=== PATIENT | female | born 2000 | race Caucasian/White ===

== ENCOUNTER 2021-07-25 22:27 | Emergency (ER) | payer SELFPAY ==
[2021-07-25 22:29] VITALS: BP 129/73; PULSE 86; RESP 17; TEMP 36.7; O2SAT 98; BMI 28.1
[2021-07-25 22:54] VITALS: BMI 28.1
[2021-07-25 23:17] LABS: Microscopic, Urine URINE MICROSCOPIC (MICROSCOPIC)
[2021-07-25 23:20] LABS: Basophils # 0.1 K/mm3 (0-0.2); Basophils % 1.1 % (0.1-2.0); Eosinophils # 0.1 K/mm3 (0.0-0.4); Eosinophils % 1.3 % (0.1-12.0); Hematocrit 40.4 % (37.0-47.0); Hemoglobin 13.5 g/dL (12.2-16.2); Lymphocytes # 2.6 K/mm3 (0.7-4.5); Lymphocytes % 37.2 % (10-50); Mean Corpuscular HGB Conc 33.3 g/dL (31.8-35.4); Mean Corpuscular Hemoglobin 29.9 pg (27.0-31.2); Mean Corpuscular Volume 89.7 fl (81-99); Mean Platelet Volume 8.1 fl (7.4-10.4); Monocytes # 0.2 K/mm3 (0.1-1.0); Neutrophils % 57.4 % (37.0-80.0); Platelet Count 255 K/mm3 (142-424); Red Blood Count 4.51 M/mm3 (4.20-5.40); Red Cell Distribution Width 12.4 % (11.5-17.5)
[2021-07-25 23:30] LABS: Appearance,Urine SL CLOUDY (Clear); Bilirubin,Urine Negative (Negative); Blood, Urine TRACE-I (Negative); Color,Urine YELLOW (Yellow); Glucose,Urine (UA) Negative (Negative); Ketones,Urine Negative (Negative); Leukocyte Esterase,Urine 1+ (Negative); Nitrate,Urine Negative (Negative); Protein,Urine Negative (Negative); Urobilinogen,Urine 0.2 EU/dl (0.2)
[2021-07-25 23:32] LABS: Alanine Aminotransferase 36 U/L (12-78); Albumin Level 4.2 g/dl (3.5-5.0); Albumin/Globulin Ratio 1.6 (1.1-1.8); Alkaline Phosphatase 42 U/L (38-126); Amylase 62 U/L (30-110); Anion Gap 11.6 mEq/L (5-15); Aspartate Amino Transferase 29 U/L (14-36); Bilirubin,Total 0.3 mg/dl (0.2-1.3); Blood Urea Nitrogen 3 mg/dl (7-17); Calcium 9.3 mg/dl (8.4-10.2); Carbon Dioxide 24 mmol/L (22.0-30.0); Chloride 103 mmol/L (98-107); Creatinine Clearance Estimated 266 mL/min (50-200); Estimated Glomerular Filt Rate 206 ml/min (>60); GFR (African American) 249 ML/MIN (>60); Globulin 2.6 g/dL (1.3-3.2); Glucose 83 mg/dl (74-100); Lipase 108 U/L (23-300); Potassium 3.6 mmoL/L (3.5-5.1); Sodium 135 mmol/L (136-145); Total Protein,Serum 6.8 g/dl (6.3-8.2)
[2021-07-25 23:34] LABS: Urine Pregnancy, HCG Qual. Positive (Negative)
[2021-07-25 23:37] LABS: C-Reactive Protein 1.5 mg/L (0-4)
[2021-07-25 23:42] LABS: Bacteria,Urine 1+ /lpf; Squamous Epithelial Cell,Urine Occasional #/hpf (0-5)
[2021-07-25 23:51] LABS: Erythrocyte Sedimentation Rate 21 mm/hr (0-20)
[2021-07-26 00:09] LABS: Procalcitonin < 0.030 ng/mL (0.0-2.0)
--- NOTE | 2021-07-26 00:10 | PC.NURSE ---
family updated on status
--- NOTE | 2021-07-26 00:21 | [facility].EDPREG ---
ED Disposition Clinical Impression: Qualifiers: Weeks of gestation: 10 weeks Qualified Code(s): Z3A.10 - 10 weeks gestation of Disposition: Home, Self-Care Condition on Discharge: Good Instructions: DI for -- Discomforts and Remedies Additional Instructions: fluids and call ob in am Referrals: Provider,Referral, [Primary Care Provider] - - Critical Care Critical Care Time: No Attestation: On 07/25/21, the high probability of a clinically significant, sudden or life threatening deterioration of the following system(s) required my full and direct attention, intervention and personal management. The time I documented below is in addition to time spent performing reported procedures but includes the following listed in this critical care notation. Medical Decision Making - Medical Records Medical records reviewed: Yes: I reviewed the patient's medical records. - Neri Inquiry Pt receiving controlled substance: No Vital Signs: 07/25/21 22:29 Temperature 98.1 F Temperature Source Oral Pulse Rate [Right] 86 Respiratory Rate 17 Blood Pressure [Right Arm] 129/73 Blood Pressure Mean [Right Arm] 91 Blood Pressure Source [Right Arm] Automatic Cuff 02 Sat by Pulse Oximetry 98 Oxygen Delivery Method Room Air - Lab Data Lab results reviewed: Yes: I reviewed the patient's lab results. Lab Results 07/25/21 23:00: Urine Color Yellow, Urine Appearance Sl cloudy, Urine pH 6.0, Ur Specific [place] 1.020, Urine Protein Negative, Urine Glucose (UA) Negative, Urine Ketones Negative, Urine Blood Trace-i, Urine Nitrate Negative, Urine Bilirubin Negative, Urine Urobilinogen 0.2, Ur Leukocyte Esterase 1+ A, Urine WBC 3-5, Ur Squamous Epith Cells Occasional, Urine Bacteria 1+ 07/25/21 23:00: Urine HCG, Qual Positive 07/25/21 23:00: WBC 7.0, RBC 4.51, Hgb 13.5, Hct 40.4, MCV 89.7, MCH 29.9, MCHC 33.3, RDW 12.4, Plt Count 255, MPV 8.1, Neut % (Auto) 57.4, Lymph % (Auto) 37.2, [place] % (Auto) 3.0, Eos % (Auto) 1.3, Baso % (Auto) 1.1, Neut # (Auto) 4.0, Lymph # (Auto) 2.6, [place] # (Auto) 0.2, Eos # (Auto) 0.1, Baso # (Auto) 0.1, ESR 21 H 07/25/21 23:00: Sodium 135 L, Potassium 3.6, Chloride 103, Carbon Dioxide 24, Anion Gap 11.6, BUN 3 L, Creatinine 0.40 L, Estimated Creat Clear 266, Estimated GFR 206, Est GFR ( Amer) 249, Glucose 83, Calcium 9.3, Total Bilirubin 0.3, AST 29, ALT 36, Alkaline Phosphatase 42, C-Reactive Protein 1.5, Total Protein 6.8, Albumin 4.2, Globulin 2.6, Albumin/Globulin Ratio 1.6, Amylase 62, Lipase 108, Procalcitonin < 0.030, HCG, Quant [id number] H Result diagrams: 07/25/21 23:00 07/25/21 23:00 Orders (Tests/Meds): ORDERS Category Date Time Status Urine Culture Stat Micro 07/25/21 23:00 Received Medical Decision Narrative: known iup at 10 weeks w/o vag bleeding and stable exam and labs - will d/c to have pt call ob in am HPI - General Chief complaint: Abdominal Pain Stated complaint: lower back pain,cramps,spotting 10-11 wks preg Time Seen by Provider: 07/25/21 23:15 Mode of Arrival: Family Vehicle Source of Information: Patient, Medical Record Limitations: No Limitations Description of Symptoms (Recalled from ER Triage Doc. by RN): Pt c/o Epigastric, low back, and low abd pain that pulls to my sides . Reports this pain began 2hr [employer] and is sharp in nature. She reports to be 10wk and 2 day of her 1st , LMP 05/20/21. Pt's OBGYN is @ [facility] and she recently had her intial u/s and everything was great and baby was healthy . Denies any current bleeding, she reports 2 wk ago she had some spotting but this went away. Denies any n/v/d, fever, chills, headache, or cough. Pt denies any dysuria, frequency, or urgency. - History of Present Illness HPI Narrative: had sudden episode of lower abd pain tonight w/o fever or vag bleeding - pt had u/s which showed iup about 2 weeks ago MD Complaint: abdominal pain Onset (ago): hour(s) Cons
[2021-07-26 00:31] VITALS: BP 115/69; PULSE 77; RESP 16; TEMP 36.7; O2SAT 98
== END 2021-07-26 00:40 | disposition home or self-care (01) ==
PROVIDERS: Emergency Provider Emergency Medicine
DX: Z3A.10 10 weeks gestation of pregnancy (principal); R10.30 Lower abdominal pain, unspecified
CPT/HCPCS: 80053; 81001; 81025; 82150; 83690; 84145; 84702; 85025; 85651; 86140; 87086; 96365; 99282